=== PATIENT | female | born 1945 | race Caucasian/White ===

== ENCOUNTER → 2021-08-14 09:17 | Outpatient (CLI) | payer OTHER, SELFPAY ==
--- NOTE | 2021-08-14 09:19 | DI.CT.S_ITS ---
PROCEDURE: CT THORACIC SPINE WO CON INDICATIONS: Secondary malignant neoplasm of bone TECHNIQUE: Noncontrast 3 mm thick sections acquired through the region of interest in the thoracic spine. Sagittal and coronal reformats were then constructed. For radiation dose reduction, the following was used: automated exposure control. COMPARISON: [facility], , CT T SPINE WITHOUT CONTRAST, 06/27/2021, 9:02. FINDINGS: Image quality: Excellent. Bones: There is been interval posterior fusion from T2 through T6 there is good anatomic alignment and appearance of fracture deformities are stable. Hardware is intact without evidence hardware fracture or periprosthetic loosening. Multilevel lucencies at T1, T2, T3, T4, T5 and C6 demonstrate a mixed appearance of stable versus progressive compared to prior exam. There is no identified cortical breakthrough of these lesions. There is a markedly progressive focal area of lucency within the posterior aspect of the T8 vertebral body. Posterior cortex destruction is present with poorly visualized soft tissue density appearing to extend to the epidural canal as well as the right lateral recess. Lucency is also noted within the midportion of T7 without cortical destruction, although increased in size compared to prior exam. Progressive lucency is present within the anterior aspect of the T10 vertebral body as well as left transverse process. Anterior vertebral body lucency without cortical breakthrough is noted at T11, enlarged compared to prior exam. Ill-defined lucency is noted in the posterior right aspect of T12 mildly more prominent when compared to prior exam. There is mid and posterior lucency within the L1 vertebral body with progressive cortical breakthrough most prominent along the right lateral aspect. Soft tissue density is noted extending into the region of the right foramina. This is more prominent when compared to prior exam. Partially visualized lucencies are noted at L2, also progressive. Slight cortical breakthrough is noted along the anterior left vertebral body, new. In addition, there is expansile lucency appearing more prominent within the posterior left pedicle. Lucencies are present at the level of C6 and C7 unchanged. Multilevel areas of lucency within the ribs are noted with particularly destructive appearance at the right 6th rib. There is a fracture at the right 8th rib, new abnormal lucencies are also noted within the posterior right ribs most notable at T12 T9, posteriorly and appearing more. Soft tissues: There is a mild right effusion. Left adrenal gland mass is again noted increased in size measuring 3.2 cm AP x 3.9 cm transverse compared to 2.2 cm AP x 3.5 cm transverse. Right adrenal gland mass is present measuring 2.0 cm AP x 2.1 cm transverse compared to 1.8 cm AP x 1.5 cm transverse. Mediastinal adenopathy remains present, relatively unchanged. Subcarinal lymph node is present measuring 2.7 cm in short axis compared to 2.6 cm on prior exam. Low-density right thyroid nodule measuring 1.3 cm is stable. As noted on prior exam, partially visualized soft tissue nodules are noted along the lateral posterior aspect of the left kidney. The largest previous focus is not included within the current field of view. However, additional soft tissue densities within the renal fossa are present and appears similar in size. Soft tissue densities are also noted within the mesenteric fat anterior to the left hepatic lobe which has increased in size particularly with lesion seen on series 4, image 1 L4 measuring 6 mm AP x 9 mm transverse compared to 5 mm AP x 6 mm transverse. Subcutaneous fat soft tissue areas of nodularity are noted, incompletely visualized compared to prior exam but felt to be at least similar in size or perhaps mildly increased. The heart is enlarged. IMPRESSION: 1. Interval posterior fusion as above. 2. Multifocal areas of metastatic appearing lucency within the visualized cervical, thoracic and lumbar spine overall demonstrating interval progression particularly as noted at the level of T8 now demonstrating soft tissue density appearing to extend into the epidural space. This would be better evaluated on MRI with without contrast. 3. Progressive lucencies most suggestive metastatic disease within the ribs as detailed above including right rib fracture, considered to be pathologic. 4. Soft tissue densities within the mesenteric fat seen and partially visualized view felt to be overall increased compared to prior exam concerning for metastatic disease. 5. Bilateral adrenal glands demonstrating interval increase in size most suggestive metastatic disease. 6. Mediastinal adenopathy. Dictated by: Leonila Mace M.D. on 08/18/2021 at 10:36 Approved by: Leonila Mace M.D. on 08/18/2021 at 10:53
== END ==
PROVIDERS: Referring Provider Physician Assistant; Visit Provider Physician Assistant
DX: C79.51 Secondary malignant neoplasm of bone (principal); C80.1 Malignant (primary) neoplasm, unspecified; R59.0 Localized enlarged lymph nodes; I51.7 Cardiomegaly; Z98.1 Arthrodesis status
CPT/HCPCS: 72128

== ENCOUNTER → 2021-10-07 09:31 | Outpatient (CLI) | payer OTHER, SELFPAY ==
--- NOTE | 2021-10-07 | DI.RAD.S_ITS ---
PROCEDURE: XR THORACIC SPINE 2V INDICATIONS: Pathological fracture in other disease, other site, subseque TECHNIQUE: 2 views of the thoracic spine were acquired. COMPARISON: [facility], CT, CT THORACIC SPINE WO CON, 08/14/2021, 9:26. FINDINGS: Image quality: Study is limited by motion artifact, particularly in the upper thoracic spine. Bones: Multiple lytic lesions are better appreciated on the prior CT. Upper thoracic spine instrumentation from T2 through T6 and decompressive T4 laminectomy noted. No evidence of hardware failure loosening. Multiple upper compression fractures involving T4, T5 and T6 are stable from prior exam. New T7 compression fracture Soft tissues: No paravertebral stripe thickening. Surgical clips noted on the lateral exam are probably axillary clips. IMPRESSION: 1. Diffuse metastatic osteolytic disease better appreciated on the prior CT. 2. New T7 pathologic compression fracture with 30% height loss. 3. T4 decompressive laminectomy, T2 through T6 instrumentation, and T4, T5 and T6 compression fractures are is stable from the prior Approved by: Colt Espitia M.D. on 10/07/2021 at 9:31
== END ==
PROVIDERS: PCP Family Medicine; Referring Provider Neurological Surgery; Visit Provider Neurological Surgery
DX: C79.51 Secondary malignant neoplasm of bone (principal); C80.1 Malignant (primary) neoplasm, unspecified; M48.54XA Collapsed vertebra, not elsewhere classified, thoracic region, initial encounter for fracture
CPT/HCPCS: 72070

== ENCOUNTER → 2021-11-17 17:42 | Outpatient (CLI) | payer OTHER, SELFPAY ==
--- NOTE | 2021-11-17 | DI.MRI.S_ITS ---
PROCEDURE: MR HEAD/BRAIN WO/W CON INDICATIONS: HEADACHES TECHNIQUE: Noncontrast axial T1 spin echo, axial T2 fast spin echo, sagittal and axial FLAIR, coronal T2 fast spin echo, axial gradient echo, axial diffusion and ADC through the brain. After the administration of contrast, axial and coronal T1 spin echo with fat saturation through the brain. COMPARISON: None. FINDINGS: Image quality: Excellent. CSF spaces: Basal cisterns are patent. No extra-axial fluid collections. Ventricles are normal in size and shape. Brain: No midline shift. No intracranial bleeds or masses. No abnormal intracranial enhancement. There is cerebral volume loss for age. There is periventricular white matter chronic small vessel ischemic change. The brainstem appears normal. Diffusion-weighted images demonstrate no acute ischemic insults. No chronic ischemic insults. Normal intravascular flow voids are present. Skull and face: Calvarial marrow is normal in signal. Orbits appear normal. Sinuses: Sinuses and mastoids appear clear. IMPRESSION: 1. Mild volume loss. Minimal small vessel ischemic disease. 2. No acute process. No recent infarct. No explanation for headaches. Dictated by: Ella Self M.D. on 11/18/2021 at 8:07 Approved by: Ella Self M.D. on 11/18/2021 at 8:08
== END ==
PROVIDERS: PCP Family Medicine; Referring Provider Internal Medicine Hematology & Oncology; Visit Provider Internal Medicine Hematology & Oncology
DX: C41.2 Malignant neoplasm of vertebral column (principal); R51.9 Headache, unspecified; C50.912 Malignant neoplasm of unspecified site of left female breast; C79.51 Secondary malignant neoplasm of bone; C79.52 Secondary malignant neoplasm of bone marrow; C79.71 Secondary malignant neoplasm of right adrenal gland; C79.72 Secondary malignant neoplasm of left adrenal gland; C78.6 Secondary malignant neoplasm of retroperitoneum and peritoneum
CPT/HCPCS: 70553; A9579